=== PATIENT | male | born 1995 | race Two or more races ===

== ENCOUNTER 2022-04-22 12:12 | Emergency (ER) | payer OTHER ==
[~2022-04-22] VITALS: Ht 185.4 cm; Wt 61.2 kg
[2022-04-22 12:23] VITALS: BP 137/81
[2022-04-22] MEDS ORDERED: KETOROLAC TROMETHAMINE INJ 30 MG/ML VIAL IM ONE (12:30)
[2022-04-22] MEDS ORDERED: KETOROLAC TROMETHAMINE INJ 30 MG/ML VIAL ONE (12:35)
[2022-04-22] MEDS ORDERED: CLIN300C12 PO (13:29)
[2022-04-22] MEDS ORDERED: KETO10TA2 PO (13:29)
[2022-04-22] MEDS ORDERED: CYCL5TAB PO (13:29)
--- NOTE | 2022-04-22 14:11 | NUR ---
provided crutches, instructions provided.
== END 2022-04-22 14:12 | disposition home or self-care (01) ==
LOC: ER 12:26
DX: S70.02XA Contusion of left hip, initial encounter (principal); S20.219A Contusion of unspecified front wall of thorax, initial encounter; L03.114 Cellulitis of left upper limb; Z59.00 Homelessness unspecified; Z79.899 Other long term (current) drug therapy; Y04.0XXA Assault by unarmed brawl or fight, initial encounter; Y93.89 Activity, other specified; Y92.89 Other specified places as the place of occurrence of the external cause; Y99.8 Other external cause status
CPT/HCPCS: 99283; 96372; 73503; 82962; J1885; 73502